=== PATIENT | male | born 1945 | race Caucasian/White ===

== ENCOUNTER → 2016-09-30 | Outpatient (CLI) | payer MEDICARE, OTHER ==
[~2016-09-30] MED LIST: ASPIRIN EC81 M1 PO; DIVALPROEX DR PO; FLOMAX0.4 M1 PO; FLUTICASONE NASAL; HYDROCODONE-APA1 T61 PO; IPRAT-ALBUT 0.5-3 ML INH; LEXAPRO PO; MELATIN3 MG; NEURONTIN600 MG PO; OMEPRAZOLE40 MG PO; POTASSIUM CHLO10 ME1 PO; VITAMIN B 1 PO; VITAMIN D 3 PO
--- NOTE | ~2016-09-30 | CT113 ---
[facility] A Service of [facility] RADIOLOGY TEXT RESULTS PATIENT: CHRIS GÓMEZ [facility] : 43 UNIT #: [id number] AGE: [address]: KARINA GALAN APRN SEX: M ORDER DR: [id number] [facility] [address] [place], [place] [address] [id number] O MR#: [id number] Acc #: [id number] NAME: CHRIS GÓMEZ : 1945 SEX: M STUDY DATE/TIME: 09/30/2016 14:25 UNIT: [facility]AT ROOM: STUDY DESCRIPTION: CT Sinuses Wo Contrast Attending Physician: Karina Galan Referring Physician: Karina Galan Ordering Physician: Karina Galan Primary Care Physician: Aldo Miller M.D. MEDICAL IMAGING REPORT This report is preliminary unless electronic signature is present EXAM Sinus CT no contrast DATE OF STUDY 09/30/2016 PROCEDURE Axial unenhanced sinus CT with multiplanar reformats. This CT exam was performed with one or more of the following radiation dose reduction techniques: automatic exposure control, adjustment of mA and/or kV according to patient size, and iterative reconstruction. COMPARISON None. HISTORY Recurrent sinusitis. Right eye and head pain for 6 months. FINDINGS The frontal sinuses are normally pneumatized and aerated and the ethmoid air cells are normally pneumatized and aerated and the sphenoid chambers are normally pneumatized and aerated and appear more or less codominant though there may be slight right side dominance. The mastoid air cells are normally pneumatized and aerated as are the middle ears. There is bilateral maxillary somewhat lobular mucosal thickening. There appears to be a right uncinate process that has been at least partially removed. The left infundibulum is narrowed or occluded by mucosal thickening. The nasal septum deviates rightward posteriorly with a rightward spur, and deviates leftward anteriorly and there is a defect in the nasal septum [facility] A Service [facility] RADIOLOGY TEXT RESULTS PATIENT: CHRIS GÓMEZ [facility] 43 UNIT #: [id number] AGE: [address]: KARINA GALAN APRN SEX: M ORDER DR: anteriorly, about 12 mm in craniocaudal dimension and about 18-19 mm in AP dimension. The patient is edentulous. No other bone erosion or destruction is seen. IMPRESSION 1. Maxillary mucosal thickening, and probable prior sinus surgery with right uncinectomy. The maximum mucosal thickening is fairly lobular. 2. There is septal deviation and actually a septal defect anteriorly. No other bone erosion. Dictated by... Paddy Martinez M.D. THIS IS AN ELECTRONICALLY VERIFIED REPORT Paddy Martinez M.D. at 10/01/2016 3:53 PM MARK/jalen TD: 10/01/2016 08:09 JOB #: [id number] MEDICAL IMAGING REPORT Page 1 of 1 COPY
== END | disposition home or self-care (01) ==
LOC: CCAT 09-27 13:30
DX: J32.9 Chronic sinusitis, unspecified (principal); J34.89 Other specified disorders of nose and nasal sinuses; J34.2 Deviated nasal septum
CPT/HCPCS: 70486